=== PATIENT | female | born 1985 | race Caucasian/White ===

== ENCOUNTER 2016-10-08 13:40 | Emergency (ER) | payer SELFPAY ==
[2016-10-08 13:51] VITALS: BP 108/77; PULSE 95; TEMP 97.9; BMI 19.8
--- NOTE | 2016-10-08 14:25 | PDOC ---
History of Present Illness - General Chief Complaint: Eye Problem Stated Complaint: EYE PROBLEM Time Seen by Provider: 10/08/16 13:54 History Source: Patient Exam Limitations: No Limitations - History of Present Illness Initial Comments: 10/08/16 14:37 Patient states 2 days ago was cleaning out multiple areas in a deep closet where there was a lot of dust in the air when had an acute onset of itching and tenderness to her eye, states uses some eyedrops last night and woke up this morning with redness and swelling to her conjunctiva. Patient was seen by an urgent care and given polymyxin drops for bacterial conjunctivitis which she has been using. However last night when she attempted to take some antihistamine started to gag and she has difficulty with pills, started to gag and threw up violently and sustained a conjunctiva hyphal hemorrhage and presents here with her orbit. Eyes pain, but states is quite itchy purulent drainage but patient is mildly blurred but does not feel have any foreign body to eye. His fever, ear or throat pain, has some sneezing and some sinus congestion consistent with an ALLERGIC response. 10/08/16 14:39 10/08/16 14:40 10/08/16 14:43 Timing/Duration: unsure Severity: mild, moderate Associated Symptoms: reports: denies symptoms Past History - Travel Traveled outside of the country in the last 30 days: No Close contact w/someone who was outside of country & ill: No - Past Medical History Allergies/Adverse Reactions: Allergies Allergy/AdvReac Type Severity Reaction Status Date / Time Penicillins AdvReac Nausea Verified 10/08/16 13:47 Home Medications: Ambulatory Orders NK [No Known Home Medication] 10/08/16 Other medical history: DENIES. - Psycho/Social/Smoking Cessation Hx Suicidal Ideation: No Smoking History: Current every day smoker Have you smoked in the past 12 months: Yes Number of Cigarettes Smoked Daily: 6 Information on smoking cessation initiated: No Review of Systems - Review of Systems Able to Perform ROS?: Yes Is the patient limited Urdu proficient: Yes Constitutional: Yes: Symptoms Reported, See HPI. No: Fever, Malaise HEENTM: Yes: Symptoms Reported, See HPI, Blurred Vision, Tearing Respiratory: No: Symptoms reported Integumentary: Yes: Symptoms Reported, See HPI, Bruising All Other Systems: Reviewed and Negative *Physical Exam - Vital Signs Last Vital Signs Temp Pulse Resp BP Pulse Ox 97.9 F 95 H 19 108/77 96 10/08/16 13:47 10/08/16 13:47 10/08/16 13:47 10/08/16 13:47 10/08/16 13:47 - Physical Exam General Appearance: Yes: Nourished, Appropriately Dressed, Apparent Distress, Mild Distress HEENT: positive: BOBBY, TMs Normal, Pharynx Normal, Other (erythematous, and edematous conjunctiva to the right eye with swollen lids and some conjunctival hemorrhage noted in the medial canthus of eye. Also has a medial orbital ecchymoses) Neck: positive: Supple. 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 NML intact, Fully Oriented, Alert, Normal Mood/ Affect, Normal Response, Motor Strength 5/5 *DC/Admit/Observation/Transfer Diagnosis at time of Disposition: Subconjunctival hemorrhage of right eye Conjunctivitis, allergic Qualifiers: Laterality: right Qualified Code(s): H10.11 - Acute atopic conjunctivitis, right eye - Discharge Dispostion Disposition: HOME Condition at time of disposition: Stable Admit: No - Referrals Referrals: Lrorie Craig MD [Staff Physician] - - Patient Instructions Printed Discharge Instructions: DI for Eye Allergic Reaction Additional Instructions: Rest, avoid rubbing eyes Wash hands frequently Wash hands, use eye drops as directed, wash hands after use Do not share eyedrops with other person to may become infected as this will infect them May use ALLERGIC eyedrops as directed tingling and swelling to conjunctiva Avoid contact with others until redness and discharge is gone from eyes. Followup with ophthalmology or private physician as needed - Post Discharge Activity Work/School Note: Back to Work
== END 2016-10-08 15:03 | disposition home or self-care (01) ==
LOC: JERFT 13:40
DX: H10.11 Acute atopic conjunctivitis, right eye (principal); H11.31 Conjunctival hemorrhage, right eye
CPT/HCPCS: 99281-25

== ENCOUNTER 2018-02-22 15:18 | Emergency (ER) | payer OTHER ==
[2018-02-22 15:22] VITALS: BP 116/34; PULSE 76; TEMP 97.6; BMI 19.9
--- NOTE | 2018-02-22 16:07 | PDOC ---
Rapid Medical Evaluation Chief Complaint: Chronic pain Time Seen by Provider: 02/22/18 15:39 Medical Evaluation: Allergies Allergy/AdvReac Type Severity Reaction Status Date / Time Penicillins AdvReac Nausea Verified 02/22/18 15:22 Vital Signs Temp Pulse Resp BP Pulse Ox 97.6 F 76 16 116/34 L 99 02/22/18 15:20 02/22/18 15:20 02/22/18 15:20 02/22/18 15:20 02/22/18 15:20 02/22/18 16:07 I have performed a brief in-person evaluation of this patient. The patient presents with a chief complaint of: worsening of chronic R knee pain , dx w/ torn meniscus in past. Does not currently have an orthopedist Pertinent physical exam findings: Has PENNY in place to R knee I have ordered the following:nothing The patient will proceed to the ED for further evaluation Discharge Disposition - Diagnosis Knee pain Qualifiers: Chronicity: acute Laterality: right Qualified Code(s): M25.561 - Pain in right knee - Referrals - Patient Instructions - Post Discharge Activity
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
== END 2018-02-22 16:25 | disposition home or self-care (01) ==
LOC: JERFT 15:18
DX: M25.561 Pain in right knee (principal); Z87.891 Personal history of nicotine dependence; J44.9 Chronic obstructive pulmonary disease, unspecified
CPT/HCPCS: 99281-25

== ENCOUNTER 2018-04-27 13:16 | Emergency (ER) | payer SELFPAY ==
--- NOTE | 2018-04-27 13:28 | PDOC ---
History of Present Illness - General Chief Complaint: Pain, Acute Stated Complaint: RT FOOT INJURY Time Seen by Provider: 04/27/18 13:27 History Source: Patient Exam Limitations: No Limitations - History of Present Illness Initial Comments: 04/27/18 13:27 CHIEF COMPLAINT: Discolored toes HISTORY OF PRESENT ILLNESS: This is an otherwise healthy 32-year-old female who presents for evaluation of one month of intermittent swelling and dark discoloration to the toes. She denies frostbite/unusual cold exposure and injury. She has not noted a pattern to her symptoms. She notes associated fatigue and that she is "always cold." She reports that she saw a physician in her primary care doctor's office and had lab work done (she has these results with her: CBC, BMP, and lipids are within normal limits). Patient smokes a half pack of cigarettes daily. She denies alcohol and drug use. Vital signs on arrival are notable for blood pressure of 104/48. REVIEW OF SYSTEMS: GENERAL/CONSTITUTIONAL: No fever or chills. No weakness. No weight change. HEAD, EYES, EARS, NOSE AND THROAT: No change in vision. No ear pain or discharge. No sore throat. CARDIOVASCULAR: No chest pain or palpitations. RESPIRATORY: No cough, wheezing, or shortness of breath. GASTROINTESTINAL: No nausea, vomiting, diarrhea or constipation. GENITOURINARY: No dysuria, frequency, or change in urination. MUSCULOSKELETAL: See HPI. SKIN: No rash or easy bruising. NEUROLOGIC: No headache, vertigo, loss of consciousness, or loss of sensation. PSYCHIATRIC: No depression or anxiety. ENDOCRINE: No increased thirst. No abnormal weight change. HEMATOLOGIC/LYMPHATIC: No anemia, easy bleeding, or history of blood clots. ALLERGIC/IMMUNOLOGIC: No hives or skin allergy. No latex allergy. PHYSICAL EXAM: GENERAL: The patient is awake, alert, and fully oriented, in no acute distress. HEAD: Normal with no signs of trauma. ENT: Pupils equal, round and reactive to light, extraocular movements intact, sclera anicteric, conjunctiva clear. Neck supple. LUNGS: Clear to auscultation bilaterally. Normal excursion. No respiratory distress or use of accessory muscles. CV: RRR, S1/S2, no MRG. Cap refill < 2 sec. ABDOMEN: Soft, non-distended, non-tender. EXTREMITIES: Normal range of motion, no edema. DP/PT pulses 2+. No calf tenderness. Purple discoloration and edema to all digits of both feet. No swelling or discoloration of hands. NEUROLOGICAL: Normal speech, normal gait. CN II-XII grossly intact. PSYCH: Normal mood, normal affect. SKIN: Warm, dry, normal turgor, no rashes or lesions noted. Past History - Past Medical History Allergies/Adverse Reactions: Allergies Allergy/AdvReac Type Severity Reaction Status Date / Time Penicillins AdvReac Nausea Verified 02/22/18 15:22 Home Medications: Ambulatory Orders NK [No Known Home Medication] 10/08/16 COPD: Yes - Suicide/Smoking/Psychosocial Hx Smoking History: Never smoked Have you smoked in the past 12 months: No Number of Cigarettes Smoked Daily: 6 Hx Alcohol Use: No Drug/Substance Use Hx: No Medical Decision Making - Medical Decision Making 04/27/18 14:33 A/P: 32-year-old female with intermittent swelling and discoloration of her toes. Suspect Raynaud's Phenomenon. Recommend that patient undergo further workup such as a CORTNEY, RF, C3/C4 complement's, etc. to rule out secondary Raynaud 's (lupus, scleroderma, etc.). Advised patient to avoid cold exposure/stress and to quit smoking. She may need further therapy if these measures are not effective. Called and spoke with primary care provider's office and obtained appointment for the patient for next Tuesday to continue her workup. ER note and impression faxed to office per RN's request. Follow-up instructions and return precautions reviewed with the patient. *DC/Admit/Observation/Transfer Diagnosis at time of Disposition: Discoloration of skin of toe - Discharge Dispostion Disposition: HOME Condition at time of disposition: Stable Decision to Admit order: No - Referrals - Patient Instructions Printed Discharge Instructions: Raynauds Disease and Phenomenon Additional Instructions: -See Dr. Lemus on Tuesday, 05/02 at 9am -We recommend followup lab work to exclude Raynaud's Phenomenon and other autoimmune disorders -Avoid cold exposure and minimize stress to the best of your ability -Try to quit smoking. [id number] has some free resources that can help you. -Return here for uncontrolled pain, numbness in your feet, or any other concerning symptoms - Post Discharge Activity Forms/Work/School Notes: Back to Work
[2018-04-27 13:31] VITALS: BP 104/48; PULSE 75; TEMP 98.6; BMI 19.8
--- NOTE | 2018-04-27 13:34 | PDOC ---
Rapid Medical Evaluation Chief Complaint: Pain, Acute Time Seen by Provider: 04/27/18 13:27 Medical Evaluation: Allergies Allergy/AdvReac Type Severity Reaction Status Date / Time Penicillins AdvReac Nausea Verified 02/22/18 15:22 Vital Signs Temp Pulse Resp BP Pulse Ox 98.6 F 75 17 104/48 L 99 04/27/18 13:26 04/27/18 13:26 04/27/18 13:26 04/27/18 13:26 04/27/18 13:26 04/27/18 13:31 I have performed a brief in-person evaluation of this patient. The patient presents with a chief complaint of: with Pmhx with 1 month h/o discoloration to distal part of 3rd-5th right toes w/o trauma x 1 month Pertinent physical exam findings:increased erythema over distal phalange of right 3rd -5th toes I have ordered the following: x-rays of right foot The patient will proceed to the ED for further evaluation. Discharge Disposition - Diagnosis Right foot pain - Referrals - Patient Instructions - Post Discharge Activity
== END 2018-04-27 14:34 | disposition home or self-care (01) ==
LOC: JERFT 13:16
DX: L81.9 Disorder of pigmentation, unspecified (principal)
CPT/HCPCS: 84703; 99281-25